=== PATIENT | female | born 1995 | race Hispanic/Latino ===

== ENCOUNTER 2017-04-20 18:52 | Emergency (ER) | payer OTHER ==
[~2017-04-20] VITALS: Ht 157.5 cm; Wt 63.6 kg
[2017-04-20 18:56] VITALS: BP 100/73; PULSE 91; RESP 16; O2SAT 99
[2017-04-20 19:48] LABS: BASOPHILS % (AUTO) 0.1 % (0-3); EOSINOPHILS % (AUTO) 0.4 % (0-5); MONOCYTES % (AUTO) 2.5 % (4-12); Mean Corpuscular Hemoglobin 30.4 pg (27.0-35.0); Mean Corpuscular Volume 83.9 fL (81-100); NEUTROPHILS % (AUTO) 85.7 % (40-74); Platelet Count 279 bil/L (150-400)
[2017-04-20 20:09] LABS: Magnesium 1.8 mg/dL (1.6-2.6)
--- NOTE | 2017-04-20 20:35 | ED.REPORT ---
HPI-Preg Under 20 Weeks Date of Service April 20, 2017 ED Provider: Lico Webber MD 21 year old female with hx of (currently 3 months ) who presents to the ER with moderate vaginal bleeding and abdominal cramping onset approximately 20 minutes prior to arrival. Pt states the bleeding is more than a normal period. Her back pain radiates to the back. Pt denies dysuria and any injury. Blood type: B+ Nursing Notes Stated Complaint: POSSIBLE MISCARRIAGE Chief Complaint: Female Abdominal Pain Nursing Notes Reviewed: Yes Allergies: Coded Allergies: No Known Allergies (Unverified , 04/20/17) General Time Seen by Provider: 20:36 Chief Complaint Abdominal cramping, Passed blood clots Hx Obtained From: Patient Arrived By: Walk-in Onset Occurred: 16 - 30 minutes ago Symptom Duration: Since onset Location: : Pelvis Quality: Cramping, Painful Radiation: : Back Severity: Current: Moderate Severity: Maximum: Severe Associated with: Reports: Vaginal bleeding, Denies: Vomiting Pertinent Negative: Relieved by nothing Past Medical History Past Medical History , otherwise healthy Past Surgical History None reported Smoking History Unknown if Ever Smoker Review of Systems Constitutional: Denies: Fever Respiratory: Denies: Shortness of breath Cardiovascular: Denies: Chest pain GI: Reports: Abdominal pain, Denies: Nausea, Vomiting Female: Reports: , Vaginal bleeding - abnl, Denies: Dysuria Complete sys rev & neg: except as marked. Physical Exam Bedside ultrasound: IUP live moving fetus, heart beat approx 150, adequate amniotic fluid Initial Vital Signs Vital Signs (First) Date Time Temp Pulse Resp B/P Pulse Ox O2 Delivery O2 Flow Rate FiO2 04/20/17 18:56 37.4 91 16 100/73 99 Room Air Initial VS: Reviewed Head / Eyes: Atraumatic, Normocephalic, PERRL ENT: Mucous membranes moist, Conjunctiva normal, No scleral icterus Neck: Full range of motion Respiratory: Breath sounds normal, Clear to auscultation, No respiratory distress Cardiovascular: Regular rate & rhythm, Heart sounds normal, Intact distal pulses Extremities: Vascular intact, Neuro intact, No swelling, No tenderness Skin: Warm, Dry, No cyanosis Neurologic: Alert, Oriented, Nonfocal Psychiatric: Mood/affect normal, Behavior normal, Normal thought content General/Constitutional: Awake, Alert Abdomen: Soft, No guarding Tenderness/Guarding/Rebound: Positive: Tender diffuse appearing abdomen Interpretation & Diagnostics Lab Results Interpretation Result Diagram: 04/20/17 1924 04/20/17 1924 Test 04/20/17 19:24 04/20/17 19:27 White Blood Count 13.4th/mm3 (3.8-10.1) Red Blood Count 4.04mil/mm3 (3.90-5.20) Hemoglobin 12.3g/dL (12.0-15.6) Hematocrit 33.9% (35.0-46.0) Mean Corpuscular Volume 83.9fL (81-100) Mean Corpuscular Hemoglobin 30.4pg (27.0-35.0) Mean Corpuscular Hemoglobin Concent 36.3% (32.0-37.0) Red Cell Distribution Width 13.1% (12.3-15.4) Platelet Count 279bil/L (150-400) Neutrophils (%) (Auto) 85.7% (40-74) Lymphocytes (%) (Auto) 11.1% (14-46) Monocytes (%) (Auto) 2.5% (4-12) Eosinophils (%) (Auto) 0.4% (0-5) Basophils (%) (Auto) 0.1% (0-3) Sodium Level 136mEq/L (134-144) Potassium Level 3.9mEq/L (3.5-5.2) Chloride Level 103mEq/L (97-108) Carbon Dioxide Level 19mmol/L (18-29) Blood Urea Nitrogen 12mg/dL (6-20) Creatinine 0.46mg/dL (0.57-1.00) Estimat Glomerular Filtration Rate 246mL/min (>59) Glucose Level 101mg/dL (60-99) Calcium Level 9.4mg/dL (8.5-10.1) Magnesium Level 1.8mg/dL (1.6-2.6) Total Bilirubin 0.4mg/dL (0.0-1.2) Aspartate Amino Transf (AST/SGOT) 15U/L (0-50) Alanine Aminotransferase (ALT/SGPT) 9U/L (0-32) Alkaline Phosphatase 64U/L (25-150) Total Protein 7.3g/dL (6.4-8.4) Albumin 4.1g/dL (3.4-5.0) Lipase 28U/L (13-60) Hold Bella Top Tube Received (Received) General Lab Results Interp 1: Labs reviewed US Focused OB Subchorionic hemorrhage Exam Type: Diagnostic Exam Interpreted by: Radiologist Interpretation: Live intrauterine preg Re-Eval/Medical Decision Re-Evaluation/Progress : Time of Eval: 21:46 Re-Evaluation/Progress Note: Updated of ultrasound instructions. Discussed plan for discharge and follow up. All questions addressed. Counseled Regarding: Diagnosis, Lab results, Need for follow-up, When/why to return to ED Discharge & Departure Primary Impression: Subchorionic hemorrhage in first trimester Disposition: Home Discharge Condition All VS Reviewed: Yes Condition: Stable Patient Instructions: Pelvic Rest (ED), Subchorionic Hemorrhage (ED) Additional Instructions: Your ultrasound today showed first trimester with a subchorionic hemorrhage. There is a potential for miscarriage. Make sure that you stay rested. No heavy lifting, prolonged walks or anything in the vagina (tampons included). See the instructions on pelvic rest. Call your OBGYN tomorrow to schedule an appointment next week. Return to the ER for severe uncontrollable bleeding (bleeding through pads every 30 minutes for a few hours), lightheadedness. Referrals: Boris Middleton (PCP) Scribe Attestation Portions of this note were transcribed by Joanna Guerra. I, (Dr. Webber) personally performed the history, physical exam and medical decision-making; I reviewed and confirmed the accuracy of the information in the transcribed note. Signed by: Joanna Guerra. Mack, 04/20/2017, [id number] copies to: Boris Middleton Kirk H MD April 20, 2017 20:35 Joanna Guerra April 20, 2017 20:43
--- NOTE | 2017-04-20 21:49 | DRSVH ---
PROCEDURE: US OB<14 WKS INDICATIONS: vag bleeding OUTSIDE/PRIOR DATING DATA: Last menstrual period (LMP): Unknown. LMP-based estimated date of delivery (CAPRICE): Unknown. First dating scan (date and location): 04/20/17. Estimated date of delivery (CAPRICE) from first dating scan: 11/09/17. TECHNIQUE: Real-time scanning was performed of the fetus and maternal pelvic organs, with image documentation. Endovaginal scanning was also performed to better visualize the fetus and maternal ovaries. COMPARISON: None. FINDINGS: Embryo: [employer] Ultrasound Procedure Report Early Gestation [facility] [place] Rump Length: 4.06 cm Gestational Age (CRL): 11 weeks, 0 days Summary Fetus Summary Heart Rate: 169 bpm Comments: There is a small subchorionic bleed. Measurement variability in dating: +/- 4 weeks by LMP, +/- 7 days by mean sac diameter (use before 6 weeks gestation if crown-rump length not able to be measured), +/- 5 days by crown-rump length (6-12 weeks gestation). Maternal organs: Ovaries are joint cyst, likely corpus luteum cyst in the right ovary.. Limited selvin ges through the kidneys demonstrate no hydronephrosis. IMPRESSION: Viable intrauterine gestation of 11 weeks zero days age. This indicates an estimated date of confine ment of 11/09/17. Small subchorionic bleed. Dictated by: Jamal Ziegler M.D. on 04/20/2017 at 21:44 Approved by: Jamal Ziegler M.D. on 04/20/2017 at 21:47
[2017-04-20 21:53] VITALS: BP 114/70; PULSE 79; RESP 18; O2SAT 100
== END 2017-04-20 22:33 | disposition home or self-care (01) ==
LOC: SED 18:52
DX: O20.8 Other hemorrhage in early pregnancy (principal); Z3A.13 13 weeks gestation of pregnancy